=== PATIENT | female | born 1945 | race Caucasian/White ===

== ENCOUNTER 2017-08-25 07:59 | Day surgery (SDC) | payer MEDICARE ==
[~2017-08-25] VITALS: Ht 160 cm; Wt 63.0 kg
[~2017-08-25 07:59] MED LIST: ALPHA LIPOIC A200 M1; ASCO500; Acetaminophen1 EAC2 PO; BROMELAINS500 MG; CALCIT950 PO; CO Q-10400 MG; Complete Multi1 EAC1 PO; FISH OIL 1,2001 EACH; FISH OIL 1,4001 EACH PO; LEVSOD50 PO; LISI5 PO; LOVA40 PO; MAGOXI400; VITAMIN D5000 UNIT PO; Vitamin B Comple1 EA PO
== END 2017-08-25 11:15 | disposition home or self-care (01) ==
LOC: ORSCSDS 07:59
PROVIDERS: Ophthalmology
PROC: 08RK3JZ Replacement of Left Lens with Synthetic Substitute, Percutaneous Approach (ICD-10-PCS; principal; 2017-08-25 09:30)
DX: H25.12 Age-related nuclear cataract, left eye (principal); H52.202 Unspecified astigmatism, left eye; I10 Essential (primary) hypertension; E03.9 Hypothyroidism, unspecified; Z79.899 Other long term (current) drug therapy
CPT/HCPCS: J2250; J3010; J3301; J7040; V2632

== ENCOUNTER 2018-10-20 11:12 | Day surgery (SDC) | payer MEDICARE ==
[~2018-10-20] VITALS: Ht 160 cm; Wt 59.0 kg
[~2018-10-20 11:12] MED LIST changes: +Zanaflex4 M1 PO
== END 2018-10-20 13:22 | disposition home or self-care (01) ==
LOC: ORSCSDS 11:12
PROVIDERS: Internal Medicine Gastroenterology
PROC: 0DBL8ZX Excision of Transverse Colon, Via Natural or Artificial Opening Endoscopic, Diagnostic (ICD-10-PCS; principal; 2018-10-20 12:45)
PROC: 0DBN8ZX Excision of Sigmoid Colon, Via Natural or Artificial Opening Endoscopic, Diagnostic (ICD-10-PCS; principal; 2018-10-20 12:45)
DX: Z12.11 Encounter for screening for malignant neoplasm of colon (principal); K63.5 Polyp of colon; K64.4 Residual hemorrhoidal skin tags; K64.8 Other hemorrhoids; K57.30 Diverticulosis of large intestine without perforation or abscess without bleeding; Z86.010 Personal history of colon polyps; I10 Essential (primary) hypertension; E78.00 Pure hypercholesterolemia, unspecified; Z79.899 Other long term (current) drug therapy
CPT/HCPCS: 88305; J2704; J7120

== ENCOUNTER 2018-11-25 05:46 | Day surgery (SDC) | payer MEDICARE ==
[~2018-11-25] VITALS: Ht 160 cm; Wt 61.6 kg
--- NOTE | 2018-11-25 06:14 | NUR ---
INTO [facility] ADMISSION STARTED TO UNIT.Ambulatory in Day Surgery Patient States Post-Procedure ride home has been arranged. Lungs clear T/O to Auscultation. Patient confirms NPO status and agrees with scheduled surgery.
--- NOTE | 2018-11-25 10:10 | NUR ---
INTO [facility]. PT A&0X3. REPORTS 6/10 ABDOMINAL PAIN. DENIES NAUSEA AT THIS TIME. INCISION X 3 TO ABDOMEN WITH DERMABOND INTACT-NO NOTED DRAINAGE OR SWELLING. PT SLEEPS WHEN NOT DISTURBED. WILL INITIATE MARK WHEN PT IS MORE AWAKE.
--- NOTE | 2018-11-25 12:02 | NUR ---
PT UP TO BR WITH SOME LIGHTHEADEDNESS RESOLVED WHEN SITTING UP IN CHAIR. PT C/O OF SOME NAUSEA RETURNING. PROVIDED PEPPERMINT TEA AND SALTINES. NO EMESIS. DR SKINNER AWARE. NO NEW MEDS ORDERED. NAUSEA RESOLVED WITH PO INTAKE. INCISIONS REMAINED CDI. Patient up to Ambulate independently. Gait steady. Discharge instructions reviewed with patient. Patient verbalizes understanding. Copy given to patient to take home. Patient States Post-Procedure ride home has been arranged. Patient reports completing Chlorhexadine shower X2 prior to admission to hospital.
== END 2018-11-25 22:44 | disposition home or self-care (01) ==
LOC: ORSCMMR 05:46 → ORD 07:30 → ORSCMMR 07:30
PROVIDERS: Surgery
PROC: 8E0W4CZ Robotic Assisted Procedure of Trunk Region, Percutaneous Endoscopic Approach (ICD-10-PCS; principal; 2018-11-25 07:30)
PROC: 0YU54JZ Supplement Right Inguinal Region with Synthetic Substitute, Percutaneous Endoscopic Approach (ICD-10-PCS; principal; 2018-11-25 07:30)
DX: K40.90 Unilateral inguinal hernia, without obstruction or gangrene, not specified as recurrent (principal); I10 Essential (primary) hypertension; E03.9 Hypothyroidism, unspecified; Z79.899 Other long term (current) drug therapy
CPT/HCPCS: 49650; S2900; A9270-GY; C1781; J0690; J1100; J2250; J2405; J2704; J2710; J2765; J3010; J7120

== ENCOUNTER 2024-04-04 12:15 | Day surgery (SDC) | payer OTHER ==
[~2024-04-04] VITALS: Ht 160 cm; Wt 57.6 kg
[~2024-04-04 12:15] MED LIST changes: +Lactated Ringer's 1,000 ML IV ONE; +propofoL 50 ML IV ONE
[2024-04-04] MEDS ORDERED: Lactated Ringer's 1,000 ML IV ONE (12:51)
[2024-04-04 15:45] VITALS: BP 116/64
--- NOTE | 2024-04-04 15:55 | NUR ---
04/04/24 1555 Judith Caruso HIGH FIBER, DIVERTICULOSIS PAMPHLET GIVEN.
== END 2024-04-04 14:50 | disposition home or self-care (01) ==
LOC: ORSCSDS 12:15
PROVIDERS: Specialist
PROC: 0DBP8ZX Excision of Rectum, Via Natural or Artificial Opening Endoscopic, Diagnostic (ICD-10-PCS; principal; 2024-04-04 13:30)
DX: Z12.11 Encounter for screening for malignant neoplasm of colon (principal); Z86.0101 Personal history of adenomatous and serrated colon polyps; D12.8 Benign neoplasm of rectum; K57.30 Diverticulosis of large intestine without perforation or abscess without bleeding; K64.8 Other hemorrhoids; Z79.899 Other long term (current) drug therapy
CPT/HCPCS: 88305; J2704; J7120

== ENCOUNTER → 2024-06-23 | Outpatient (CLI) | payer OTHER ==
[~2024-06-23] MED LIST changes: -Lactated Ringer's 1,000 ML IV ONE; -propofoL 50 ML IV ONE
[2024-06-24 12:08] LABS: Source, Urine Clean Catch
[2024-06-24 12:13] LABS: Appearance, Urine Clear (Clear); Bilirubin, Urine Neg (Neg); Blood, Urine Neg (Neg); Color, Urine Yellow (P-Yellow); Glucose Qualitative, Urine Neg (Neg); Ketones, Urine Neg (Neg); Leukocyte Esterase, Urine 3+ (Neg); Nitrite, Urine Neg (Neg); Protein, Urine 1+ (Neg); Urobilinogen, Urine NORM (Normal); pH, Urine 6.5 (5.0-8.0)
[2024-06-24 12:40] LABS: Red Blood Cells, Urine 0-2 /hpf (0-2); Squamous Epithelial Cells Rare /hpf (Few)
[2024-06-24 12:41] LABS: Bacteria Rare /hpf
== END | disposition home or self-care (01) ==
LOC: LAB SHORT 16:06 → LAB 16:06
PROVIDERS: Family Medicine
DX: B82.9 Intestinal parasitism, unspecified (principal); R30.0 Dysuria
CPT/HCPCS: 81001; 87077; 87086; 87186

== ENCOUNTER 2025-01-11 08:52 | Day surgery (SDC) | payer OTHER ==
[~2025-01-11] VITALS: Ht 160 cm; Wt 59.6 kg
[~2025-01-11 08:52] MED LIST changes: +Balanced Salt Epinephrine Irrigation Solution 500 mL IR SCH; +Moxifloxacin HCL 0.5 MG/0.1 ML 0.4MLSYR RIGHTEYE SCH; +Ondansetron 4 MG SoluTab MM PRN; +PHENYLEPHRINE\\TROPICAMIDE\\TETRACAINE OPHTHALMIC DILATING SOLN RIGHTEYE PRN; +Povidone-Iodine 450 DROP/30 ML Solution ONE; +Povidone-Iodine 450 DROP/30 ML Solution RIGHTEYE SCH; +Tetracaine HCl/Pf 0.5% Opth Soln 4 ml ONE; +Triamcinolone Inj Susp 40 MG / ML 1ML Vial INJ SCH; +Triamcinolone Inj Susp 40 MG / ML 1ML Vial ONE
--- NOTE | 2025-01-11 09:31 | NUR ---
01/11/25 0931 Hanny Mahmood UPON ARRIVAL PT RATES ANXIETY 08/14. VALIUM GIVEN PER DR'S ORDERS. PULSE OX ON, O2 SATS ARE 99% ON ROOM AIR. CALL LIGHT IN REACH. WARM BLANKETS PROVIDED. SOCKS PROVIED FOR COMFORT. AT BEDSIDE. PT TOLERATED TETRACAINE EYE DROP AND PLEDGET WELL.
--- NOTE | 2025-01-11 10:12 | NUR ---
01/11/25 1012 Mellissa Munoz 1005 BP 179/88, HR 72, O2 AT 100%, RESP 16
[2025-01-11 11:08] VITALS: BP 141/97
== END 2025-01-11 10:48 | disposition home or self-care (01) ==
LOC: ORSCSDS 08:52
PROVIDERS: Ophthalmology
PROC: 08RJ3JZ Replacement of Right Lens with Synthetic Substitute, Percutaneous Approach (ICD-10-PCS; principal; 2025-01-11 10:30)
DX: H25.811 Combined forms of age-related cataract, right eye (principal); Z96.1 Presence of intraocular lens; H40.003 Preglaucoma, unspecified, bilateral; E78.00 Pure hypercholesterolemia, unspecified; I10 Essential (primary) hypertension; E03.9 Hypothyroidism, unspecified; I73.9 Peripheral vascular disease, unspecified; Z79.899 Other long term (current) drug therapy
CPT/HCPCS: A9270; J3301; V2632

== ENCOUNTER → 2025-03-06 | Outpatient (CLI) | payer OTHER ==
[~2025-03-06] MED LIST changes: -Balanced Salt Epinephrine Irrigation Solution 500 mL IR SCH; -Moxifloxacin HCL 0.5 MG/0.1 ML 0.4MLSYR RIGHTEYE SCH; -Ondansetron 4 MG SoluTab MM PRN; -PHENYLEPHRINE\\TROPICAMIDE\\TETRACAINE OPHTHALMIC DILATING SOLN RIGHTEYE PRN; -Povidone-Iodine 450 DROP/30 ML Solution ONE; -Povidone-Iodine 450 DROP/30 ML Solution RIGHTEYE SCH; -Tetracaine HCl/Pf 0.5% Opth Soln 4 ml ONE; -Triamcinolone Inj Susp 40 MG / ML 1ML Vial INJ SCH; -Triamcinolone Inj Susp 40 MG / ML 1ML Vial ONE
== END ==
LOC: LAB 16:12 → LAB SHORT 16:12
DX: R30.0 Dysuria (principal)
CPT/HCPCS: 87086